=== PATIENT | female | born 2000 | race Caucasian/White ===

== ENCOUNTER 2019-03-11 16:37 | Observation (INO) | payer MEDICAID | END 2019-03-12 15:36 | disposition home or self-care (01) | LOC: F3E 21:55 ==

== ENCOUNTER 2019-03-17 16:58 | Emergency (ER) | payer MEDICAID | END 2019-03-17 19:50 | disposition home or self-care (01) ==

== ENCOUNTER 2019-03-25 20:03 | Emergency (ER) | payer MEDICAID | END 2019-03-25 22:13 | disposition home or self-care (01) ==